=== PATIENT | female | born 1940 | race Hispanic/Latino ===

== ENCOUNTER 2023-09-13 14:06 | Day surgery (SDC) | payer SELFPAY ==
[2023-09-13] VITALS (7 sets, daily range): BP systolic 149–171; BP diastolic 55–71; BMI 31.0
== END 2023-09-13 17:49 | disposition home or self-care (01) ==
LOC: SDS 14:06
PROVIDERS: ATTENDING PHYSICIAN Internal Medicine Gastroenterology
DX: K80.30 Calculus of bile duct with cholangitis, unspecified, without obstruction (principal); R74.8 Abnormal levels of other serum enzymes; K83.8 Other specified diseases of biliary tract; R93.2 Abnormal findings on diagnostic imaging of liver and biliary tract
CPT/HCPCS: 43264; 74330; 76000; C1769